=== PATIENT | female | born 1995 | race Caucasian/White ===

== ENCOUNTER 2023-05-11 12:09 | Outpatient (OUT) | payer OTHER, SELFPAY ==
[2023-05-11 14:08] LABS: Free T3 2.42 pg/mL (2.18-3.98); Thyroid Stimulating Hormone 1.509 uIU/mL (0.358-3.740)
== END 2023-05-11 12:10 | disposition home or self-care (01) ==
LOC: LAB 12:12
PROVIDERS: PCP Nurse Practitioner Family; Visit Provider Nurse Practitioner Family
DX: K59.00 Constipation, unspecified (principal)
CPT/HCPCS: 36415; 84436; 84443; 84481